=== PATIENT | female | born 1950 | race Caucasian/White ===

== ENCOUNTER → 2016-10-16 | Outpatient (CLI) | payer BC, OTHER ==
[~2016-10-16] MED LIST: Coumadin,Jantoven PO; Feosol PO; GLUCOVANCE 51 TABLET PO; LOTREL 10/21 CAPSULE PO; Lasix PO; SENOKOT S,PE1 TABLET PO; Tenormin PO; Vicodin,Norco 5/325 PO
== END | disposition home or self-care (01) ==
DX: M17.12 Unilateral primary osteoarthritis, left knee (principal)
CPT/HCPCS: 97110 GP; 97150 GO; 97161 GP; 97165 GO; G8978 GP; G8979 GP; G8980 GP; G8987 GO; G8988 GO; G8989 GO

== ENCOUNTER 2016-11-19 10:18 | Inpatient (IN) | payer BC, OTHER ==
[~2016-11-19] VITALS: Ht 154.9 cm; Wt 82.9 kg
[~2016-11-19 10:18] MED LIST changes: +CENTRUM SILVER1 EAC4 PO; +FERROCITE324 MG PO; +GLUCOSAMINE CH1 EAC2 PO; +LO-DOSE ASPIRIN81 M2 PO; +NAPROSYN500 MG PO; +TENORMIN50 MG PO
[2016-12-28] MEDS ORDERED: TENORMIN50 MG PO (09:01)
[2016-12-28] MEDS ORDERED: LO-DOSE ASPIRIN81 M2 PO (09:01)
[2016-12-28] MEDS ORDERED: METAGLIP 5/51 TABLET PO (09:02)
[2016-12-28] MEDS ORDERED: NAPROSYN500 MG PO (09:02)
[2016-12-28] MEDS ORDERED: GLUCOSAMINE CH1 EAC2 PO (09:03)
[2016-12-28] MEDS ORDERED: IRON325 MG PO (09:03)
[2016-12-28] MEDS ORDERED: NORVASC5 MG PO (09:05)
[2016-12-28] MEDS ORDERED: MULTIPLE VITAM1 EAC4 PO (09:06)
[2016-12-31 06:24] LABS: POINT-OF-CARE METER ID UU14174212
[2016-12-31] MEDS ORDERED: AMLODIPINE-OLM1 EAC1 PO (06:39)
[2016-12-31 06:43] VITALS: BP 154/79
[2016-12-31 09:24] LABS: POINT-OF-CARE METER ID UU13113675
[2016-12-31 10:38] LABS: HEMATOCRIT 33.7 % (36.0-46.0); MCH 29.7 PG (29.0-34.0); MCHC 34.4 G/DL (30.0-36.0); MCV 86.2 FL (83-99); MEAN PLAT.VOLUME 9.2 uM^3 (9.5-12.4); PLATELET COUNT 296 K/uL (156-360); RBC DIS.WIDTH-CV 12.2 % (11.8-14.6); RBC DIS.WIDTH-SD 38.4 % (39-53); RED BLOOD COUNT 3.91 M/uL (3.80-5.20)
[2016-12-31 10:45] LABS: WHITE BLOOD COUNT 11.2 K/uL (4.1-10.2)
[2016-12-31 10:55] VITALS: BP 140/73
[2016-12-31 11:16] LABS: POINT-OF-CARE METER ID UU13113712
[2016-12-31 15:29] VITALS: BP 152/76
[2016-12-31 16:28] LABS: POINT-OF-CARE METER ID UU13113712
[2016-12-31 19:54] VITALS: BP 168/82
[2017-01-01 00:30] VITALS: BP 156/84
[2017-01-01 03:36] VITALS: BP 177/88
[2017-01-01 05:46] LABS: HEMATOCRIT 30.3 % (36.0-46.0); MCV 83.2 FL (83-99)
[2017-01-01 06:10] LABS: ANION GAP 10 MEQ/L (2-14); CHLORIDE 96 MEQ/L (99-109); GFR ESTIMATE (CALCULATED) > 59 mL/min/; GLUCOSE 236 mg/dL (70-99); SAMPLE HEMOLYSIS CHECK 0; SAMPLE ICTERIC CHECK 0; SAMPLE LIPEMIA CHECK 0; UREA NITROGEN (BUN) 7 mg/dL (9-23)
[2017-01-01 06:15] LABS: POTASSIUM 3.6 MEQ/L (3.7-5.4); SODIUM 131 MEQ/L (136-147)
[2017-01-01 07:37] VITALS: BP 154/73
[2017-01-01 11:56] LABS: POINT-OF-CARE METER ID UU13113712
[2017-01-01 12:00] VITALS: BP 148/67
[2017-01-01 15:45] VITALS: BP 137/65
[2017-01-01 16:30] LABS: POINT-OF-CARE METER ID UU13113712
[2017-01-01 22:17] LABS: POINT-OF-CARE METER ID UU13113712
[2017-01-02 00:04] VITALS: BP 115/57
[2017-01-02 04:21] VITALS: BP 129/59
[2017-01-02 05:22] LABS: HEMATOCRIT 27.8 % (36.0-46.0); MCV 84.5 FL (83-99)
[2017-01-02 07:51] LABS: POINT-OF-CARE METER ID UU13113712
[2017-01-02] MEDS ORDERED: SENNA PLUS TAB1 EACH PO (08:02)
[2017-01-02] MEDS ORDERED: LOVENOX40 MG/0.4 SC (08:02)
[2017-01-02] MEDS ORDERED: ENDOCET 5-3251 EACH PO (08:02)
[2017-01-02 08:09] VITALS: BP 125/62
[2017-01-02 11:39] VITALS: BP 107/59
[2017-01-02 11:51] LABS: POINT-OF-CARE METER ID UU13113712
== END 2017-01-02 14:59 | DRG 470 ==
LOC: 2SOUTH → 3WEST 12-31 05:38 → 2SOUTH 12-31 09:08 → 3WEST 12-31 10:30 → 2SOUTH 12-31 10:38 → 3WEST 01-02 14:59
PROVIDERS: Orthopaedic Surgery
PROC: 0SRD0J9 Replacement of Left Knee Joint with Synthetic Substitute, Cemented, Open Approach (ICD-10-PCS; principal; 2016-12-31)
DX: M17.12 Unilateral primary osteoarthritis, left knee (principal); I10 Essential (primary) hypertension; R60.0 Localized edema; E11.42 Type 2 diabetes mellitus with diabetic polyneuropathy; E66.9 Obesity, unspecified; Z68.34 Body mass index [BMI] 34.0-34.9, adult; R78.5 Finding of other psychotropic drug in blood; I87.8 Other specified disorders of veins; L97.821 Non-pressure chronic ulcer of other part of left lower leg limited to breakdown of skin
CPT/HCPCS: 73560; 80048; 82948; 85014; 85018; 85027; C1713; J0131; J0690; J1170; J1650; J1815; J2250; J2405; J7050

== ENCOUNTER 2017-10-06 22:43 | Inpatient (IN) | payer OTHER ==
[~2017-10-06] VITALS: Ht 154.9 cm; Wt 80.7 kg
[~2017-10-06 22:43] MED LIST changes: +AMLODIPINE-OLM1 EAC1 PO; +ENDOCET 5-3251 EACH PO; +IRON325 MG PO; +LOVENOX40 MG/0.4 SC; +METAGLIP 5/51 TABLET PO; +MULTIPLE VITAM1 EAC4 PO; +NORVASC5 MG PO; +SENNA PLUS TAB1 EACH PO
== END 2017-10-07 07:00 | disposition home or self-care (01) | DRG 554 ==
LOC: CANRESERV 22:43 → ENRESERV 22:43 → 2SOUTH 10-07 06:47
DX: M16.11 Unilateral primary osteoarthritis, right hip (principal); Z53.9 Procedure and treatment not carried out, unspecified reason; I10 Essential (primary) hypertension; E11.9 Type 2 diabetes mellitus without complications; Z96.642 Presence of left artificial hip joint; Z96.652 Presence of left artificial knee joint; Z88.2 Allergy status to sulfonamides
CPT/HCPCS: J7050

== ENCOUNTER 2017-11-04 22:03 | Inpatient (IN) | payer OTHER ==
[~2017-11-04] VITALS: Ht 154.9 cm; Wt 80.7 kg
[~2017-11-04 22:03] MED LIST changes: -AMLODIPINE-OLM1 EAC1 PO; +GLUCOPHAGE500 MG PO; +LOTREL 5/201 CAPSULE PO; -METAGLIP 5/51 TABLET PO; +MICRONASE5 MG PO
[2017-11-05 05:53] VITALS: BP 130/81
[2017-11-05 10:07] LABS: HEMATOCRIT 32.8 % (36.0-46.0); MCH 29.2 PG (29.0-34.0); MCHC 33.5 G/DL (30.0-36.0); PLATELET COUNT 280 K/uL (156-360); RBC DIS.WIDTH-CV 12.8 % (11.8-14.6); RED BLOOD COUNT 3.77 M/uL (3.80-5.20)
[2017-11-05 10:12] VITALS: BP 180/83
[2017-11-05 16:06] VITALS: BP 119/64
[2017-11-05 20:30] VITALS: BP 140/66
[2017-11-06 00:18] VITALS: BP 119/71
[2017-11-06 04:19] VITALS: BP 130/67
[2017-11-06 08:00] VITALS: BP 126/61
[2017-11-06] MEDS ORDERED: LOVENOX40 MG/0.4 SC (09:19)
[2017-11-06] MEDS ORDERED: ENDOCET 5-3251 EACH PO (09:19)
[2017-11-06 10:56] LABS: HEMATOCRIT 30.3 % (36.0-46.0); HEMOGLOBIN 10.1 G/DL (11.9-15.5); MCV 86.1 FL (83-99)
[2017-11-06 11:56] LABS: CHLORIDE 99 MEQ/L (99-109); CREATININE 0.8 MG/DL (0.6-1.3); GFR ESTIMATE (CALCULATED) > 59 mL/min/; GLUCOSE 248 mg/dL (70-99); POTASSIUM 4.1 MEQ/L (3.7-5.4); SODIUM 134 MEQ/L (136-147); UREA NITROGEN (BUN) 16 mg/dL (9-23)
[2017-11-06 12:00] VITALS: BP 133/63
== END 2017-11-06 14:20 | disposition home health service (06) | DRG 470 ==
LOC: ENRESERV 22:03 → 2SOUTH 11-05 05:30 → 3WEST 11-05 09:52 → 2SOUTH 11-05 15:30 → 3WEST 11-06 14:20
PROVIDERS: Orthopaedic Surgery
PROC: 0SR902A Replacement of Right Hip Joint with Metal on Polyethylene Synthetic Substitute, Uncemented, Open Approach (ICD-10-PCS; principal; 2017-11-05)
DX: M16.11 Unilateral primary osteoarthritis, right hip (principal); D62 Acute posthemorrhagic anemia; Z96.642 Presence of left artificial hip joint; Z96.652 Presence of left artificial knee joint; I10 Essential (primary) hypertension; E11.9 Type 2 diabetes mellitus without complications
CPT/HCPCS: 73522; 80048; 80048 91; 82948; 85014; 85018; 85027; 97530 GP; J0131; J0690; J1650; J2250; J2405; J3010; J7030; J7050; Q0175